=== PATIENT | female | born 1930 | race Caucasian/White ===

== ENCOUNTER 2017-04-03 22:41 | Inpatient (IN) | payer MEDICARE, OTHER ==
[~2017-04-03] VITALS: Ht 160 cm; Wt 60.0 kg
--- NOTE | ~2017-04-03 | HP ---
Unit #: [id number] #: [id number] Patient: LUIS CHAU [id number] [address] [place], [place] [address] [id number] I MR#: [id number] NAME: LUIS CHAU. ROOM: 328 Age: 86 Sex: F Admission Date: 04/04/2017 : 1930 Attending Physician: Halie Cheema M.D. Primary Care Physician: Tianna Elias M.D. HISTORY AND PHYSICAL CHIEF COMPLAINT Confusion. HISTORY OF PRESENT ILLNESS This is an 86-year-old with a history of dementia and hypertension, admitted because of confusion. According to the granddaughter who gave the history, she has been confused for three days. Patient lives with the daughter. I couldn't reach her so much of the history is taken from granddaughter. Currently, patient is confused, not able to give any history. Patient was also hallucinating, seeing people, talking to people and paranoid. She is alert but confused. No fever, no weakness, no nausea or vomiting. She previously had recent UTI. PAST MEDICAL HISTORY 1. Hypertension. 2. Dementia. PAST SURGICAL HISTORY 1. Appendectomy. 2. Hernia surgery. 3. Cholecystectomy. SOCIAL HISTORY No smoking, no alcohol, no drugs. FAMILY HISTORY Positive for hypertension. REVIEW OF SYSTEMS Unobtainable because patient is confused. PHYSICAL EXAMINATION VITAL SIGNS: Temperature 97.6, pulse 107, respirations 18, blood pressure 144/91. GENERAL: 86-year-old, alert, confused, poor eye contact present, decreased psychomotor and she is rambling, hallucinations, not oriented. Moving all extremities. HEENT: Dry mucosa present. Pupils equally react to light and accommodation. HEART: Regular rhythm, no murmurs. LUNGS: Clear to auscultation. No rhonchi, no crackles. ABDOMEN: Soft, nontender. Bowel sounds are present. Unit #: [id number] #: [id number] Patient: LUIS CHAU EXTREMITIES: No pedal edema. SKIN: Bilateral legs have chronic small petechial bruise. DIAGNOSTIC STUDIES LAB DATA: WBC 10.1, hemoglobin 13.3, creatinine 0.8. Liver enzymes normal. Alcohol less than 5. WBC in the urinalysis shows 50-100, 2+ leukocyte esterase, glucose 102. ASSESSMENT AND PLAN 86-year-old admitted because of confusion and hallucinations. 1. Toxic metabolic encephalopathy, likely from urinary tract infection. Also, patient has dementia. Monitor closely. 2. Urinary tract infection. Patient will have urine cultures and Rocephin. 3. Hypertension, currently well controlled. Continue with lisinopril. 4. History of dementia, continue with Aricept and Namenda, likely Alzheimer's. Dictated by Cristobal May/ange TD: 04/05/2017 05:24 JOB #: [id number] HISTORY AND PHYSICAL Page 1 of 1 X Halie Cheema MD X HISTORY AND PHYSICAL
--- NOTE | ~2017-04-03 | CT71 ---
[facility] A Service of [facility] RADIOLOGY TEXT RESULTS PATIENT: LUIS CHAU LOCATION: [facility] 312- : 30 UNIT #: [id number] AGE: [address]: Halie Cheema MD SEX: F ORDER DR: [id number] [facility]. [place], [place] [address] [id number] I MR#: [id number] Acc #: [id number] NAME: LUIS CHAU : 1930 SEX: F STUDY DATE/TIME: 04/04/2017 0:50 UNIT: A [facility] ROOM: [facility] STUDY DESCRIPTION: CT Head Wo Contrast Attending Physician: Halie Cheema M.D. Ordering Physician: Don Evans M.D. Primary Care Physician: Tianna Elias M.D. MEDICAL IMAGING REPORT This report is preliminary unless electronic signature is present EXAM CT head, noncontrast, 04/04/2017 HISTORY 86-year-old female brought to the ED by her family who reports 4 days of confusion/mental status changes. Hallucinating. TECHNIQUE CT examination of the head without IV contrast. This CT exam was performed with one or more of the following radiation dose reduction techniques: automatic exposure control, adjustment of mA and/or kV according to patient size, and iterative reconstruction. FINDINGS No acute intracranial abnormality is demonstrated. Mild generalized cerebral atrophy. Bdqi-rh-lyqgtxod diffuse low-attenuation white matter changes are nonspecific but likely related to chronic small vessel disease. Atheromatous plaque in the carotid siphons. No evidence of intracranial hemorrhage, mass, mass effect, acute cerebral edema or additional abnormality. IMPRESSION 1. No acute intracranial abnormality. 2. Diffuse chronic changes as noted above. Dictated by... Dipak Vences M.D. THIS IS AN ELECTRONICALLY VERIFIED REPORT Dipak Vences M.D. at 04/04/2017 9:52 PM [facility] A Service of [facility] RADIOLOGY TEXT RESULTS PATIENT: LUIS CHAU LOCATION: [facility] 312-01 : 30 UNIT #: [id number] AGE: [address]: Halie Cheema MD SEX: F ORDER DR: Zan TD: 04/04/2017 09:03 JOB #: [id number] MEDICAL IMAGING REPORT Page 1 of 1 COPY
--- NOTE | ~2017-04-03 | DS ---
Unit #: [id number] #: [id number] Patient: LUIS HODGSON [id number] [address] [place], [place] [address] [id number] I MR#: [id number] NAME: LUIS HODGSON. ROOM: 328 Age: 86 Sex: F Admission Date: 04/04/2017 : 1930 Discharge Date: 04/06/2017 Attending Physician: Jany Mcgowan M.D. Primary Care Physician: Tianna Elias M.D. DISCHARGE SUMMARY PRINCIPAL DIAGNOSES 1. Toxic metabolic encephalopathy secondary to #2. 2. Dehydration, now resolved. 3. Severe dementia with behavioral disturbance. 4. Hypertension. 5. Glaucoma. 6. Depression. 7. History of vitamin D deficiency. CONSULTANTS None. PROCEDURES 1. CT of the head without contrast on April 12, 2017, with mild generalized cerebral atrophy, mild to moderate diffuse low attenuation white matter changes consistent with chronic ischemic change, atheromatous plaque in the carotid siphons noted. 2. Chest x-ray on April 12, 2017, with no acute findings. CLINICAL HISTORY AND HOSPITAL COURSE Ms. Hodgson is an 86-year-old female brought to the emergency department after increasing confusion and hallucinations at home. Please refer to H and P for further details. Initially, urinalysis in the emergency department was concerning for urinary tract infection and patient was subsequently admitted. The patient was placed on empiric Rocephin but urine culture grew Gram-positive fernando. She did not have any evidence of leukocytosis nor did she have any fever. Antibiotics were discontinued and repeat urinalysis was negative. She did clinically appear quite dehydrated and I suspect some dehydration is contributing to her hallucinations. Her confusion has improved but she continues to hallucinate mildly. I have discussed this with the patient's daughter, Vickie Fox, who expressed understanding regarding the progressive dementia and the development of hallucinations. I am going to place her on some Risperdal at night in addition to a dose of Haldol in the morning and see if this doesn't improve symptoms at home. At this time, patient would benefit from 24 hour supervision. Vickie states she will try to obtain someone to come to the house and watch the patient while she is at work. The patient was seen by physical therapy but she is ambulating well. DISCHARGE CONDITION Stable. Unit #: [id number] #: [id number] Patient: LUIS HODGSON DISCHARGE STATUS Discharge to home. DISCHARGE MEDICATIONS 1. Risperdal 0.5 mg at bedtime. 2. Haldol 1 mg p.o. q. a.m., to hold for sedation. 3. Paxil 30 mg daily. 4. Namenda XR 28 mg daily. 5. Donepezil 10 mg daily. 6. Latanoprost one drop to both eyes daily. 7. Lisinopril 10 mg daily. 8. A daily multivitamin. 9. Aspirin 81 mg daily. 10. Vitamin D 2000 units p.o. daily. DISCHARGE INSTRUCTIONS The patient was instructed to follow a regular diet. She can increase her activity as tolerated. Again, she does require 24/ supervision. FOLLOWUP Patient will follow up with her primary care provider, Dr. Elias, in one week. Time spent on discharge today - 33 minutes. Dictated by... Jany Mcgowan M.D. MOI/ange TD: 04/07/2017 12:46 JOB #: [id number] DISCHARGE SUMMARY Page 1 of 1 X Jany Mcgowan MD X DISCHARGE SUMMARY
--- NOTE | ~2017-04-03 | CR72 ---
[facility] A Service of [facility] RADIOLOGY TEXT RESULTS PATIENT: LUIS CHAU LOCATION: [facility] 312- : 30 UNIT #: [id number] AGE: [address]: Halie Cheema MD SEX: F ORDER DR: [id number] [facility] [address] [facility]. [place], [place] [address] [id number] I MR#: [id number] #: [id number] NAME: LUIS CHAU : 1930 SEX: F STUDY DATE/TIME: 04/04/2017 0:37 UNIT: [address] ROOM: [facility] STUDY DESCRIPTION: CR Chest Single View Portable Attending Physician: Halie Cheema M.D. Ordering Physician: Don Evans M.D. Primary Care Physician: Tianna Elias M.D. MEDICAL IMAGING REPORT This report is preliminary unless electronic signature is present EXAM Chest x-ray, 04/04/2017 HISTORY 86-year-old female in the ED with mental status changes/confusion. Fever and shortness of air today. Possible urinary tract infection. TECHNIQUE AP portable chest x-ray FINDINGS The exam shows no active disease in the chest. Mild bibasilar scarring. No visible acute pulmonary infiltrate or pleural effusion. Heart size normal. Tortuous thoracic aorta. No change since 11/27/2013. IMPRESSION No active disease. Dictated by... Dipak Vences M.D. THIS IS AN ELECTRONICALLY VERIFIED REPORT Dipak Vences M.D. at 04/04/2017 9:53 PM LIDA/ami TD: 04/04/2017 09:06 JOB #: [id number] MEDICAL IMAGING REPORT Page 1 of 1 COPY
--- NOTE | ~2017-04-03 | EKG ---
PATIENT: LUIS CHAU UNIT #: [id number] Ventricular Rate: 104 BPM Atrial Rate: 104 BPM P-R Interval: 162 ms QRS Duration: 76 ms Q-T Interval: 358 ms QTC Calculation(Bezet): 470 ms P [place]: 54 degrees Calculated R [place]: -26 degrees Calculated T [place]: 54 degrees Diagnosis Line: Sinus tachycardia Diagnosis Line: Otherwise normal ECG Diagnosis Line: No previous ECGs available Diagnosis Line: Confirmed by LASHAE JEAN MD ([id number]) on 04/04/2017 Diagnosis Line: 6:00:54 PM INTERPRETING MD: TED MARSHALL
[~2017-04-03 22:41] MED LIST: PAXIL PO; ZESTRIL10 M2 PO
[2017-04-03] MEDS ORDERED: LISINOPRIL10 MG PO (22:49)
[2017-04-03] MEDS ORDERED: PAXIL30 MG PO (22:52)
[2017-04-03] MEDS ORDERED: DONEPEZIL HCL10 MG PO (22:53)
[2017-04-03] MEDS ORDERED: VITAMIN D2000 UNIT PO (22:54)
[2017-04-03] MEDS ORDERED: NAMENDA XR28 MG PO (22:54)
[2017-04-03] MEDS ORDERED: MULTIVITAMINS1 EAC4 PO (22:54)
[2017-04-03] MEDS ORDERED: LATANOPROST2.5 ML OU (22:54)
[2017-04-03] MEDS ORDERED: ASPIRIN81 M2 PO (22:55)
[2017-04-04 00:17] LABS: BASOPHIL% 0.3 % (0-2.5); EOSINOPHIL% 0.2 % (0.0-7.0); HEMATOCRIT 38.9 % (35.0-45.0); HEMOGLOBIN 13.3 gm/dL (12.0-16.0); LYMPHOCYTE# 1.7 X10e3 (1.0-3.5); LYMPHOCYTE% 16.5 % (17.0-45.0); MEAN CELL VOLUME 93.3 FL (83-96); MEAN CORPUSCULAR HGB CONC 34.3 g/dL (30-36); MONOCYTE% 9.6 % (3.0-12.0); NEUTROPHIL# 7.4 X10e3 (1.5-7.1); NEUTROPHIL% 73.4 % (40-75); PLATELET COUNT 346 X10e3 (140-420); RED BLOOD COUNT 4.17 X10e (3.90-5.30); RED CELL DISTRIBUTION WIDTH 13.3 % (11.0-15.5); WHITE BLOOD COUNT 10.1 X10e3 (4.0-10.5)
[2017-04-04 00:18] LABS: DIFF IND NO
[2017-04-04 00:27] LABS: URINE SOURCE CLEAN CATCH
[2017-04-04 00:37] LABS: ALBUMIN SERUM 4.1 g/dL (3.5-5.0); ALKALINE PHOSPHATASE 71 U/L (32-92); ALT (SGPT) 23 U/L (10-40); AST (SGOT) 33 U/L (10-42); BILIRUBIN, DIRECT 0.1 mg/dL (0.0-0.2); BILIRUBIN,INDIRECT 0.7 mg/dL (0.0-0.9); BILIRUBIN,TOTAL 0.8 mg/dL (0.2-2.0); BLOOD UREA NITROGEN 19 mg/dL (9-23); BUN/CREATININE RATIO 23.75; CALCIUM SERUM 9.4 mg/dL (8.4-10.2); CARBON DIOXIDE 22 mmol/L (22-31); CHLORIDE 102 mmol/L (100-111); CREATININE SERUM 0.8 mg/dL (0.6-1.4); GLOM FILT RATE Estimated 66.8 mL/min (>60); GLUCOSE FASTING 110 mg/dL (70-110); POTASSIUM 3.8 mmol/L (3.5-5.1); PROTEIN TOTAL SERUM 7.7 g/dL (6.0-8.3); SODIUM 136 mmol/L (135-145)
[2017-04-04 00:41] LABS: ALCOHOL BLOOD <5 mg/dL (0)
[2017-04-04 00:54] LABS: CULTURE INDICATED? YES; URINE APPEARANCE CLEAR; URINE BACTERIA AUWI NEG (NEGATIVE); URINE BILIRUBIN NEG (NEG); URINE BLOOD 2+ (NEG); URINE COLOR DK YELLOW; URINE GLUCOSE NEG (NEG); URINE KETONE TRACE (NEG); URINE LEUKOCYTE ESTERASE 2+ (NEG); URINE NITRATE NEG (NEG); URINE PH 5.5 (5-8); URINE PROTEIN TRACE (NEG); URINE SPECIFIC GRAVITY 1.023 (1.003-1.035); URINE SQUAMOUS EPITHELIAL CELL NONE SEEN /[HPF]; UWBCS1 AUWI 50-100 (0-5)
[2017-04-04 00:55] LABS: U HYALINE CASTS AUWI 0-2 /[LPF]
[2017-04-05 07:09] LABS: HEMATOCRIT 36.9 % (35.0-45.0); HEMOGLOBIN 12.6 gm/dL (12.0-16.0); MEAN CELL VOLUME 93.7 FL (83-96); MEAN CORPUSCULAR HEMOGLOBIN 31.8 PG (28-34); MEAN PLATELET VOLUME 6.9 FL (6.5-11.5); RED BLOOD COUNT 3.94 X10e (3.90-5.30); RED CELL DISTRIBUTION WIDTH 13.5 % (11.0-15.5); WHITE BLOOD COUNT 6.6 X10e3 (4.0-10.5)
[2017-04-05 07:46] LABS: CALCIUM SERUM 8.6 mg/dL (8.4-10.2); CREATININE SERUM 0.6 mg/dL (0.6-1.4); GLOM FILT RATE Estimated 82.5 mL/min (>60); POTASSIUM 4.4 mmol/L (3.5-5.1)
[2017-04-05 15:20] LABS: HEMATOCRIT 37.2 % (35.0-45.0); HEMOGLOBIN 12.5 gm/dL (12.0-16.0)
[2017-04-05 18:59] LABS: URINE SOURCE CATH
[2017-04-05 19:42] LABS: URINE APPEARANCE CLEAR; URINE BILIRUBIN NEG (NEG); URINE BLOOD 1+ (NEG); URINE COLOR YELLOW; URINE GLUCOSE NEG (NEG); URINE KETONE 1+ (NEG); URINE LEUKOCYTE ESTERASE NEG (NEG); URINE NITRATE NEG (NEG); URINE PH 5.5 (5-8); URINE PROTEIN NEG (NEG); URINE SPECIFIC GRAVITY 1.014 (1.003-1.035); URINE UROBILINOGEN 0.2 MG/DL (NEG)
[2017-04-05 19:47] LABS: URINE BACTERIA AUWI NEG (NEGATIVE); URINE SQUAMOUS EPITHELIAL CELL OCC /[HPF]
[2017-04-06] MEDS ORDERED: RISPERDAL0.5 M2 PO (12:08)
[2017-04-06] MEDS ORDERED: HALDOL PO (12:10)
[2017-04-06 15:46] LABS: BUN/CREATININE RATIO 15.71; CALCIUM SERUM 9.4 mg/dL (8.4-10.2); CREATININE SERUM 0.7 mg/dL (0.6-1.4); GLOM FILT RATE Estimated 78.5 mL/min (>60); POTASSIUM 3.8 mmol/L (3.5-5.1)
== END 2017-04-06 15:51 | disposition home or self-care (01) | DRG 640 ==
LOC: CED 22:41 → C3A PCU 04-04 02:30 → CEDOF 04-04 02:30 → CED 04-04 02:46 → CEDOF 04-04 02:46 → C3A PCU 04-04 07:50
PROVIDERS: Emergency Medicine; Internal Medicine
DX: E86.0 Dehydration (principal); G92 Toxic encephalopathy; F03.91 Unspecified dementia, unspecified severity, with behavioral disturbance; I10 Essential (primary) hypertension; H40.9 Unspecified glaucoma; F32.9 Major depressive disorder, single episode, unspecified; E55.9 Vitamin D deficiency, unspecified
CPT/HCPCS: 36415; 70450; 71010; 80048; 80076; 81003; 82607; 82947; 84443; 85014; 85018; 85025; 85027; 87086; 93005; 97161; 97165; 99285; G0480; G8978-GP; G8979-GP; G8980-GP; G8987-GO; G8988-GO; G8989-GO; J0696; J1630